=== PATIENT | male | born 1965 | race Caucasian/White ===

== ENCOUNTER 2019-10-06 12:29 | Day surgery (SDC) | payer BC, OTHER ==
[2019-09-28 11:54] LABS: HEMOGLOBIN 14.5 gm/dL (14.0-18.0); MCH 29.6 pg (26.0-34.0); MCV 89.7 fL (80.0-100.0); RBC 4.91 mil/uL (4.50-6.00); RDW 12.7 % (10.5-14.5); WBC 6.7 thou/uL (4.0-11.0)
[2019-09-28 12:05] LABS: PROTIME 10.1 Seconds (9.3-11.4)
[2019-09-28 12:14] LABS: URINE BILIRUBIN NEGATIVE (Negative); URINE BLOOD TRACE (Negative); URINE CLARITY CLEAR; URINE COLOR YELLOW; URINE GLUCOSE-RANDOM* NEGATIVE (Negative); URINE KETONES NEGATIVE (Negative); URINE LEUKOCYTES-REFLEX NEGATIVE (Negative); URINE NITRITE-REFLEX NEGATIVE (Negative); URINE PROTEIN (DIPSTICK) NEGATIVE (Negative); URINE UROBILINOGEN 0.2 E.U./dl (0.2-1.0)
[2019-09-28 12:20] LABS: ALBUMIN 4.5 g/dL (3.4-5.0); CALCIUM 9.3 mg/dL (8.5-10.1); CREATININE 0.8 mg/dL (0.7-1.3)
--- NOTE | 2019-09-28 13:15 | EKG ---
[address] [facility] [place] [address] ELECTROCARDIOGRAM REPORT Name: ANTIONETTE SALCEDO Room #: [facility].#: [id number] Admission: Attend Phys: Channing Avila MD Discharge: Date of : 63 Report #: [id number] THIS REPORT FOR: //name// [facility] Test Date: 2019-09-28 Test Time: 11:53:10 Pat Name: ANTIONETTE SALCEDO Department: Room: Gender: Director Ehs: Ian REID : [id number] Requested By: Channing Avila Order Number: [id number] MD: Patricio Stoner Measurements Intervals [place] Rate: 83 P: 29 PA: 180 QRS: 32 QRSD: 92 T: 24 QT: 377 QTc: 443 Interpretive Statements Sinus rhythm No significant abnormality Baseline wander in lead(s) V6 No previous ECG available for comparison Electronically Signed On 09-28-2019 13:15:00 HOME HEALTH CLINICIAN by Patricio Stoner [email or web address] <ELECTRONICALLY SIGNED> By: Patricio Stoner MD, [facility] 09/28/19 1315 1153 1153 Patricio Stoner MD, FACC /EPI
[~2019-10-06] VITALS: Ht 172.7 cm; Wt 95.3 kg
[~2019-10-06 12:29] MED LIST: ALEVE220 M1 PO; AMLODIPINE-BEN1 EAC5 PO; PHENTERMINE H37.5 M1 PO; PROAIR HFA8.5 GM INH; TRAVATAN Z2.5 ML OPHTHALMIC
[2019-10-06 13:43] VITALS: BP 143/77
[2019-10-06 18:00] VITALS: BP 123/73
--- NOTE | 2019-10-06 19:55 | NUR ---
PT CARE ASSUMED AT 1800. A&Ox4. PT POST OP FROM A L.KNEE. PJ DRESSING DRY AND INTACT. POLAR PACK IN PLACE. PT HAS ALREADY BEEN UP TO THE BATHROOM WITH A GAITBELT AND WALKER AND HAD A 100CC OUTPUT. [facility] AND [facility] IN PLACE. BED IN LOW POSITION, LOCKED AND BED ALARM IN PLACE. CLEAR LIQUIDS TOLERATED AND ADVANCED TO A REGULAR DIET. VITALS STABLE. CALL LIGHT IN REACH. AT BED SITE. PT HANDED OFF TO NIGHT NURSE. REPORT GIVEN
[2019-10-06 19:56] VITALS: BP 137/76
[2019-10-06 22:00] VITALS: BP 114/72
[2019-10-06 23:36] VITALS: BP 117/65
--- NOTE | 2019-10-07 00:43 | NUR ---
10/06/191899 ASSUMED CARE OF PT AFTER REPORT FROM DAY NURSE. BASELINE ASSESSMENT COMPLETED. PT RESTING IN BED WITH SPOUSE AT BEDSIDE, STATES PAIN IS CONTROLLED, STATES UNDERSTANDING OF NEED TO CALL FOR NURSE TO GET OUT OF BED. PT WITH SURGICAL DRESSING IN PLACE C/D/I, WITH PEDAL PULSES PALPABLE 2+ BILATERALLY. HOURLY VITALS CONTINUE. NO COMPAINTS AT THIS TIME.
[2019-10-07 04:29] VITALS: BP 122/71
[2019-10-07 05:34] LABS: HEMATOCRIT 39.3 % (42.0-52.0); HEMOGLOBIN 12.9 gm/dL (14.0-18.0); MCH 29.5 pg (26.0-34.0); MCHC 32.9 g/dL (28.0-37.0); MCV 89.5 fL (80.0-100.0); RBC 4.39 mil/uL (4.50-6.00); RDW 12.8 % (10.5-14.5); WBC 12.4 thou/uL (4.0-11.0)
--- NOTE | 2019-10-07 07:36 | NUR ---
PT RESTING IN BED. ALERT XS 4. GIVEN PRN PAIN MED. GAVE FRESH ICE WATER. POLAR SRI AND PICCO DRESSING IN PLACE.
--- NOTE | 2019-10-07 09:56 | NUR ---
INITIAL ASSESSMENT: Pt evaluated for d/c planning needs. Reviewed chart and spoke with nurse, pt and spouse. Pt is alert and oriented. Pt lives in house with spouse and was independent with ADL's prior to admission to the hospital. Pt is employed outside the home. Pt has walker, cane and crutches at home. Pt has scheduled outpatient physical therapy. Pt plans on returning home on d/c from hospital. Will remain available to assist as needed.
--- NOTE | 2019-10-07 10:51 | NUR ---
PT GIVEN FLU VACCINE IN RIGHT DELTOID THIS AM. PT WORKING WITH THERAPY.
[2019-10-07] MEDS ORDERED: ASPIR 8181 MG PO (11:04)
[2019-10-07] MEDS ORDERED: HYDROCODON-ACE1 EAC7 PO (11:04)
[2019-10-07] MEDS ORDERED: NEURONTIN 300300 M1 PO (11:04)
[2019-10-07] MEDS ORDERED: MS CONTIN15 MG PO (11:04)
[2019-10-07 11:15] VITALS: BP 120/65
[2019-10-07 11:16] VITALS: BP 120/65
--- NOTE | 2019-10-07 11:25 | NUR ---
DISCHARGE PAPERS GONE OVER WITH PATIENT SIGNED AND COPY IN CHART. IV ACSESS DCD. PT WAS GIVEN RX'S BEFORE SURGERY AT DR CAMPBELL'S OFFICE. PT GIVEN PRN PAIN PILL AT THIS TIME. ALL BELONGINGS PACKED AND TO BE SENT WITH PATIENT. HERE TO TRANSPORT PATIENT HOME.
[2019-10-07 11:37] VITALS: BP 120/65
--- NOTE | 2019-10-13 14:14 | O ---
[facility] [place] [address] OPERATIVE REPORT Name: ANTIONETTE SALCEDO Room #: [facility] M.Esteban.#: [id number] Admission: 10/06/19 Attend Phys: Channing Avila MD Discharge: 10/07/19 Date of : 63 Report #: [id number] THIS REPORT FOR: //name// CC: Cecilia Avila DATE OF SERVICE: 10/06/2019 PREOPERATIVE DIAGNOSIS: Left knee medial compartment osteoarthritis. POSTOPERATIVE DIAGNOSIS: Left knee medial compartment osteoarthritis. PROCEDURE: Left medial compartment knee arthroplasty using Navio robotic assistance. SURGEON: Channing Avila MD. LONG WALL MINING MACHINE TENDER: Laury Torres PA-C. INDICATIONS FOR LONG WALL MINING MACHINE TENDER: Throughout the case, extensive retraction and manipulation of the knee was required. This was afforded to me by my human resources assistant manager. ANESTHESIA: LMA with an adductor canal block. IMPLANTS: [employer] size 6 Journey II Oxinium medial femoral component, size 2 tibia and a size 9 polyethylene. TOURNIQUET TIME: 51 minutes. ESTIMATED BLOOD LOSS: 25 mL. COMPLICATIONS: None. SPECIMENS: None. CONDITION UPON LEAVING THE OPERATING ROOM: Stable. INDICATIONS FOR PROCEDURE: The patient is a 54-year-old gentleman with severe left knee medial compartment osteoarthritis. He had failed conservative measures for this and after discussion with him, he elected for left medial compartment knee arthroplasty. DESCRIPTION OF PROCEDURE: Risks, benefits, alternatives, complications were discussed in detail with the patient including but not limited to risk of anesthesia, risk of damage to nerves, arteries, blood vessels, risk for infection, bleeding, risk for continued knee pain, need for reoperation. [facility] [address] [place] [address] OPERATIVE REPORT Name: ANTIONETTE SALCEDO Room #: [facility] M.Esteban.#: [id number] Admission: 10/06/19 Attend Phys: Channing Avila MD Discharge: 10/07/19 Date of : 63 Report #: [id number] Informed consent was obtained from the patient. Left knee was appropriately marked in the preoperative holding area. Adductor canal block was placed by Anesthesia. IV clindamycin was given for preoperative antibiotics. He was brought to the operating room and placed in supine position on operating room table. LMA anesthesia was induced without complication. Tourniquet was placed on the left thigh. Left lower extremity was prepped and draped in normal sterile fashion. Timeout was performed, properly identifying the patient and procedure as well as the instrumentation and implants. All in the operating room were in agreement. Left lower extremity was exsanguinated, tourniquet was inflated. Tourniquet time was 51 minutes. Standard approach to the medial knee was made with 10 blade through the skin. Dissection was taken down sharply to the fascia and deep flaps were developed medially and laterally. Fresh 10 blade was used to make a medial parapatellar arthrotomy and the knee was inspected. There was severe medial compartment osteoarthritis. Lateral compartment and patellofemoral compartments were well maintained. ACL and PCL were intact. It was decided to proceed with medial compartment arthroplasty. Reference pins were placed in the femur and the tibia and the knee was then digitally mapped using the [employer] robotic system. Intraoperative plan was made. We sized the size 6 femur with a size 2 tibia and a 9 spacer. After acceptance of the intraoperative plan, the femoral-femoral and tibial resections were made with the Navio bur. The tibia was sized, found to be a size 2. A size 2 tibial trial was pinned and drilled. A size 6 femoral trial was placed and this was then trialed with a size 8 and then a size 9 polyethylene. Size 9 polyethylene demonstrated 1 to 1.5 mm of laxity throughout range of motion of the knee. After this, trial components were removed. Bony ends were thoroughly irrigated with normal saline. A final size 2 tibia, size 6 Journey II Oxinium femur were cemented in place using standard cementation techniques. While the cement cured, a periarticular injection consisting of morphine, ropivacaine, epinephrine and Toradol was placed around the knee joint capsule. After the cement cured, the tourniquet was deflated. Hemostasis was obtained with Bovie cautery. Final size 9 polyethylene was placed. One gram of vancomycin was placed deep in the joint. Fascia was closed with 0 Vicryl, skin was closed with 2-0 Vicryl, 3-0 Monocryl. Dermabond and a PJ dressing were applied. The patient tolerated this procedure well and went to recovery room under care of anesthesia postoperatively. <ELECTRONICALLY SIGNED> By: Channing Avila MD 10/13/19 1414 [id number] Channing Avila MD /yohan
== END 2019-10-07 11:42 | disposition home or self-care (01) ==
LOC: OR 12:29 → TBA 12:33 → OR 13:36 → 4S 19:39 → OR 10-07 11:42 → ENTRNSPT 10-07 11:42
PROVIDERS: Orthopaedic Surgery
DX: M17.12 Unilateral primary osteoarthritis, left knee (principal); I10 Essential (primary) hypertension; J45.909 Unspecified asthma, uncomplicated; Z98.890 Other specified postprocedural states; Z79.899 Other long term (current) drug therapy; Z87.442 Personal history of urinary calculi; Z98.52 Vasectomy status; Z88.0 Allergy status to penicillin; Z79.82 Long term (current) use of aspirin; Z79.891 Long term (current) use of opiate analgesic; Z23 Encounter for immunization
CPT/HCPCS: 50010; 50101; 50415; 50954; 51130; 51225; 51320; 52001; 52282; 53078; 53370; 54118; 56527; 56528; 57095; 57103; 57110; 57127; 62110; 62900; 64039; 70005